=== PATIENT | female | born 1990 | race Two or more races ===

== ENCOUNTER 2023-04-22 17:00 | Emergency (ER) | payer OTHER ==
[~2023-04-22] VITALS: Ht 157.5 cm; Wt 54.4 kg
[2023-04-22 17:46] VITALS: TEMP 98.7
[2023-04-22] MEDS ORDERED: KETOROLAC TROMETHAMINE INJ 30 MG/ML VIAL IV ONE (18:30)
[2023-04-22 19:00] LABS: BASOPHILS % (AUTO) 0.5 % (0.0-2.0); EOSINOPHILS % (AUTO) 0.1 % (0.0-6.0); HEMATOCRIT 39 % (33-45); HEMOGLOBIN 12.7 g/dL (11.5-14.8); LYMPHOCYTES # (AUTO) 1.6 K/uL (0.8-4.8); LYMPHOCYTES % (AUTO) 25.6 % (20.0-44.0); MEAN CORPUSCULAR HGB CONC 33 g/dl (31.0-36.0); MEAN CORPUSCULAR VOLUME 85 fL (82-100); MONOCYTES # (AUTO) 0.3 K/uL (0.1-1.30); MONOCYTES % (AUTO) 5.4 % (2.0-12.0); NEUTROPHILS # (AUTO) 4.2 K/uL (1.8-8.9); NEUTROPHILS % (AUTO) 68.4 % (43.0-81.0); PLATELET COUNT (AUTO) 275 K/uL (150-450); RED BLOOD CELL COUNT(AUTO) 4.59 MIL/uL (4.0-5.2); WHITE BLOOD COUNT (AUTO) 6.1 K/uL (4.3-11.0)
[2023-04-22 19:01] LABS: BILIRUBIN,URINE NEGATIVE (NEGATIVE); COLOR,URINE YELLOW (YELLOW); LEUKOCYTE ESTERASE ,URINE NEGATIVE (NEGATIVE); NITRITE, URINE NEGATIVE (NEGATIVE); PROTEIN,URINE NEGATIVE (NEGATIVE); UGLUCOSE NEGATIVE (NEGATIVE); UROBILINOGEN,URINE 0.2 EU/dL (0.2)
[2023-04-22 19:10] LABS: CALCIUM, SERUM 8.9 mg/dL (8.5-10.1); CREATININE 0.5 mg/dL (0.6-1.3); POTASSIUM 3.5 mmol/L (3.5-5.1)
[2023-04-22 19:16] LABS: ALBUMIN 3.9 g/dL (3.4-5.0); BILIRUBIN,DIRECT 0.2 mg/dL (0.0-0.2); BILIRUBIN,TOTAL 0.6 mg/dL (0.2-1.0); TOTAL PROTEIN, SERUM 6.9 g/dL (6.4-8.2)
[2023-04-22 19:19] LABS: BACTERIA,URINE Few /HPF (None Seen); RBC,URINE 0-2 /HPF (0-2); WBC,URINE 0-2 /HPF (0-3)
[2023-04-22] MEDS ORDERED: METRONIDAZOLE 500 MG TABLET PO ONE (20:00)
[2023-04-22] MEDS ORDERED: CIPROFLOXACIN HCL 500 MG TABLET PO ONE (20:00)
--- NOTE | 2023-04-22 20:00 | NUR ---
Brian Rodriguez, tried to administered Toradol patient refused.
[2023-04-22] MEDS ORDERED: CIPR-262 PO (20:02)
[2023-04-22] MEDS ORDERED: METR500T PO (20:02)
--- NOTE | 2023-04-22 20:05 | NUR ---
Brian easting outside food that was brought in by family member. Educated pt on importance of staying NPO in case further evaluation is needed. Patient states she is feeling better and asked to be d/c.
[2023-04-22] MEDS ORDERED: METRONIDAZOLE 500 MG TABLET ONE (20:07)
[2023-04-22] MEDS ORDERED: KETOROLAC TROMETHAMINE INJ 30 MG/ML VIAL ONE (20:07)
[2023-04-22] MEDS ORDERED: CIPROFLOXACIN HCL 500 MG TABLET ONE (20:07)
--- NOTE | 2023-04-22 20:22 | NUR ---
Discussed discharge plan, importance of following up with PCP and possible specialist, pt verbalized agreement.
[2023-04-22 20:29] VITALS: BP 120/74; O2SAT 100
[2023-04-22] MEDS ORDERED: KETOROLAC TROMETHAMINE INJ 60 MG/2 ML VIAL IM ONE (20:30)
== END 2023-04-22 20:30 | disposition home or self-care (01) ==
LOC: ER 17:12
DX: K52.9 Noninfective gastroenteritis and colitis, unspecified (principal)
CPT/HCPCS: 36415; 80048-TC; 80076-TC; 81001; 83690-TC; 84702-TC; 84703-TC; 85025-TC; 87086-TC; J1885